=== PATIENT | male | born 1990 | race Caucasian/White ===

== ENCOUNTER 2018-06-18 18:21 | Emergency (ER) | payer SELFPAY ==
[2018-06-18 18:28] VITALS: BP 134/87; PULSE 83; TEMP 99.1; O2SAT 98
[2018-06-18 19:42] LABS: URINE BILIRUBIN NEGATIVE (NEGATIVE); URINE BLOOD NEGATIVE (NEGATIVE); URINE CLARITY Clear (Clear); URINE COLOR Yellow (YELLOW); URINE GLUCOSE (UA) NORMAL (Normal); URINE LEUKOCYTE ESTERASE NEG Leu/uL (Negative); URINE PROTEIN NEGATIVE (NEGATIVE); URINE UROBILINOGEN NORMAL mg/dL (0.2-1.0)
--- NOTE | 2018-06-18 20:29 | C.PDOC ---
History Of Present Illness 27 y/o male comes in to ED complaining of pain to his right testicle for the past week and a half. Patient states it feels like a heavy feeling. He denies dysuria, hematuria, penile discharge. Denies any past medical history or drug use. Time Seen by Provider: 06/18/18 19:08 Chief Complaint (Nursing): Male Genitourinary History Per: Patient History/Exam Limitations: no limitations Onset/Duration Of Symptoms: Days Current Symptoms Are (Timing): Still Present Past Medical History Reviewed: Historical Data, Nursing Documentation, Vital Signs Vital Signs: Last Vital Signs Temp 99.1 F 06/18/18 18:25 Pulse 83 06/18/18 18:25 Resp 18 06/18/18 18:25 BP 134/87 06/18/18 18:25 Pulse Ox 98 06/18/18 18:25 Family History: States: No Known Family Hx - Social History Hx Alcohol Use: No Hx Substance Use: No - Immunization History Hx Tetanus Toxoid Vaccination: No Hx Influenza Vaccination: No Hx Pneumococcal Vaccination: No Review Of Systems Constitutional: Negative for: Fever, Chills, Weakness Eyes: Negative for: Redness, Other (scleral icterus) ENT: Negative for: Mouth Swelling Cardiovascular: Negative for: Chest Pain Respiratory: Negative for: Cough, Shortness of Breath Gastrointestinal: Negative for: Nausea, Vomiting, Diarrhea Genitourinary: Positive for: Other (Right testicle pain). Negative for: Dysuria, Hematuria, Penile Discharge Musculoskeletal: Negative for: Back Pain Skin: Negative for: Rash Neurological: Negative for: Weakness, Numbness, Dizziness Physical Exam - Physical Exam Appears: Well, Non-toxic, No Acute Distress Skin: Normal Color, Warm, No Rash Head: Atraumatic, Normacephalic Eye(s): bilateral: Normal Inspection (no scleral icterus), PERRL, EOMI Nose: Normal Oral Mucosa: Moist Throat: Normal, No Exudate Neck: Supple Respiratory: No Accessory Muscle Use, Other (Normal inspiratory effort) Gastrointestinal/Abdominal: Soft, No Tenderness Male Genital: No Inguinal Tenderness, No Inguinal Swelling, Other (mild tenderness to right testicle, no swelling, no mass, no erythema, no enlargement; no hernia palpated) Neurological/Psych: Oriented x3, Normal Speech ED Course And Treatment - Laboratory Results Lab Results: Urine Color Yellow (YELLOW) 06/18/18 19:28 Urine Clarity Clear (Clear) 06/18/18 19:28 Urine pH 5.0 (5.0-8.0) 06/18/18 19:28 Ur Specific [place] 1.025 (1.003-1.030) 06/18/18 19:28 Urine Protein Negative mg/dL (NEGATIVE) 06/18/18 19:28 Urine Glucose (UA) Normal mg/dL (Normal) 06/18/18 19:28 Urine Ketones Negative mg/dL (NEGATIVE) 06/18/18 19:28 Urine Blood Negative (NEGATIVE) 06/18/18 19:28 Urine Nitrate Negative (NEGATIVE) 06/18/18 19:28 Urine Bilirubin Negative (NEGATIVE) 06/18/18 19:28 Urine Urobilinogen Normal mg/dL (0.2-1.0) 06/18/18 19:28 Ur Leukocyte Esterase Neg Rosana/uL (Negative) 06/18/18 19:28 Urine WBC (Auto) < 1 /hpf (0-5) 06/18/18 19:28 O2 Sat by Pulse Oximetry: 98 (RA) Pulse Ox Interpretation: Normal - CT Scan/US Testicular US Other Rad Studies (CT/US): Read By Radiologist, Radiology Report Reviewed CT/US Interpretation: Findings. Right Testicle. Measures 4.48 x 2.45 x 2.84 cm. Normal echotexture and flow. Right Epididymis. Epididymal head measures 1.43 x 0.64 x 0.98 cm. Grossly unremarkable appearance with normal flow. Left Testicle. Measures 4.08 x 2.13 cm. Normal echotexture and flow. Left Epididymis. Epididymal head measures 1.09 x 0.84 x 1.04 cm. Grossly unremarkable appearance with normal flow. Hydrocele. Bilateral hydroceles. Varicocele. Bilateral varicoceles left more than right. Other Findings. None. Impression. 1. Bilateral varicoceles left more than right. 2. Bilateral hydroceles. . Electronically signed on Jun 18, 2018 9:26:37 PM EDT by: Jd Valle M.D., M.B.A., Certified By [facility]. [employer] Trained MRI and CT Sp ecialist. Medical Decision Making Medical Decision Making: Plan: --GC/Chlamydia --UA --Testicular US Disposition Counseled Patient/Family Regarding: Diagnosis, Need For Followup - Disposition Referrals: Willis Nickerson MD [Staff Provider] - Disposition: HOME/ ROUTINE Disposition Time: 21:33 Condition: STABLE Instructions: Hydrocele/Varicocele (DC) Forms: Gen Discharge Inst Icelandic, [facility] (Icelandic) Print Language: KOREAN - Clinical Impression Clinical Impression: Hydrocele in adult, Bilateral varicoceles - PA / [employer]ACHINE [employer] / Resident Statement MD/DO has reviewed & agrees with the documentation as recorded. - Scribe Statement The provider has reviewed the documentation as recorded by the Scribe Lydia Simpson All medical record entries made by the Alicia were at my direction and person ally dictated by me. I have reviewed the chart and agree that the record accurately reflects my personal performance of the history, physical exam, medical decision making, and the department course for this patient. I have also personally directed, reviewed, and agree with the discharge instructions and disposition.
[2018-06-18 22:00] VITALS: RESP 20
--- NOTE | 2018-06-19 08:10 | US ---
Date of service: 06/18/2018 HISTORY: testicular pain TECHNIQUE: Realtime sonography through the scrotum with color and doppler flow. COMPARISON: None Available. FINDINGS: RIGHT TESTICLE: Measures 4.5 x 2.4 by 2.8 cm. Normal echotexture and flow. RIGHT EPIDIDYMIS: Epididymal head measures 1.4 x 0.6 x 1.0 cm. Grossly unremarkable appearance with normal flow. LEFT TESTICLE: Measures 4.1 x 2.1x 2.7 cm. Normal echotexture and flow. LEFT EPIDIDYMIS: Epididymal head measures 1.1 x 0.8 x 1.0 cm. Grossly unremarkable appearance with normal flow. HYDROCELE: Borderline trace hydroceles bilaterally. VARICOCELE: Bilateral patent varicoceles. Left greater than right OTHER FINDINGS: None. IMPRESSION: No testicular torsion. No intratesticular masses. No gross orchitis or epididymitis suggested. Borderline trace bilateral hydroceles. Bilateral patent varicoceles left greater than right Concordant results (preliminary interpretation) provided by [employer] ([id number]).
== END 2018-06-18 21:59 | disposition home or self-care (01) ==
LOC: C.ER 18:21
DX: N43.3 Hydrocele, unspecified (principal); I86.1 Scrotal varices